=== PATIENT | male | born 1955 | race Caucasian/White ===

== ENCOUNTER 2016-06-09 10:34 | Day surgery (SDC) | payer OTHER ==
--- NOTE | ~2016-06-09 | EGD ---
EGD REPORT [facility] [address] [id number] NAME: ROLANDO CHOWDHURY : 53 STATUS : REG [facility] [place] PAT#: [id number] AGE: 61 ADM/REG DATE : 06/09/16 MR#: [id number] REPORT SERV DATE: 06/09/16 DICTATED BY: HOPE MOLINA DATE: 06/09/16 REPORT STATUS : Draft [facility] DATE: 06/09/16 [facility] Patient Name: Rolando Chowdhury Date of : 1955 Attending MD: HOPE MOLINA MD Procedure Date No Time: 06/09/2016 Procedure: Colonoscopy Indications: Surveillance: Personal history of adenomatous polyps on last colonoscopy 5 years ago Referring MD: CARLOS EDUARDO MORAN MD Medicines: Propofol per Anesthesia Complications: No immediate complications. Procedure: Pre-Anesthesia Assessment: - ASA Grade Assessment: III - A patient with severe systemic disease. After I obtained informed consent, the scope was passed under direct vision. Throughout the procedure, the patient's blood pressure, pulse, and oxygen saturations were monitored continuously. The CF [id number] was introduced through the anus and advanced to the terminal ileum. The colonoscopy was performed without difficulty. The patient tolerated the procedure well. The quality of the bowel preparation was good. Findings: The perianal and digital rectal examinations were normal. The terminal ileum appeared normal. The colon (entire examined portion) appeared normal. A sessile polyp was found in the ascending colon. The polyp was 2 mm in size. The polyp was removed with a cold biopsy forceps. Resection and retrieval were complete. A sessile polyp was found in the sigmoid colon. The polyp was 3 mm in size. The polyp was removed with a cold biopsy forceps. Resection and retrieval were complete. Many small-mouthed diverticula were found in the recto-sigmoid colon and in the sigmoid colon. Non-bleeding internal hemorrhoids were found during retroflexion and were mild, small and Grade I (internal hemorrhoids that do not prolapse). Impression: - The examined portion of the ileum was normal. - The entire examined colon is normal. - One 2 mm polyp in the ascending colon. Resected and retrieved. - One 3 mm polyp in the sigmoid colon. Resected and retrieved. EGD REPORT [address] [address] NAME: ROLANDO CHOWDHURY : [birth year] STATUS : REG [facility] [place] PAT#: [id number] AGE: 61 ADM/REG DATE : 06/09/16 MR#: [id number] REPORT SERV DATE: 06/09/16 DICTATED BY: HOPE MOLINA DATE: 06/09/16 REPORT STATUS : Draft TRANSCRIBED BY: [employer] DATE: 06/09/16 - Diverticulosis in the recto-sigmoid colon and in the sigmoid colon. - Non-bleeding internal hemorrhoids. Recommendation: - Patient has a contact number available for emergencies. The signs and symptoms of potential delayed complications were discussed with the patient. Return to normal activities tomorrow. Written discharge instructions were provided to the patient. - Return to previous diet. - Continue present medications. - Await pathology results. - Repeat colonoscopy in 3 - 5 years for surveillance based on pathology results. - Return to my office as previously scheduled. - Discharge patient to home. Procedure Code(s): --- Professional --- 06465, Colonoscopy, flexible, proximal to splenic flexure; with biopsy, single or multiple Diagnosis Code(s): --- Professional --- K64.0, First degree hemorrhoids K57.30, Diverticulosis of large intestine without perforation or abscess without bleeding D12.5, Benign neoplasm of sigmoid colon D12.2, Benign neoplasm of ascending colon Z86.010, Personal history of colonic polyps CPT copyright 2013 [employer]. All rights reserved. The codes documented in this report are preliminary and upon pension agent review may be revised to meet current compliance requirements. Hope Molina MD HOPE MOLINA MD 06/09/2016 3:12 PM This report has been signed electronically. Number of Addenda: 0 Note Initiated On: 06/09/2016 2:18 PM Scope Withdrawal Time 0 hours 10 minutes 1 second [id number] [id number]
[~2016-06-09 10:34] MED LIST: ALLEGRA180 PO; ASA5GR PO; ASABAYER PO; CRAN CONC500 MG PO; CRESTOR10 PO; DEPO-TESTOS100 MG/ML IM; GINKGO BILOBA PO; HYDROCHLOROT25 MG PO; L20 PO; LOVAZA1 GM PO; METHOC750B PO; MOBIC15 MG PO; PRIN5 PO; PROMEGA PO; SAW PALMETTO PO; SAWPALMETTO PO; SINGULAIR1 PO; SPIR100 PO; TYLENOL ARTH650 MG PO; TYLENOL ARTHRITIS; ULTRAM50 PO; VIT B12 SL; VITAMIN B-121000 MC1 SL; VITC500 PO; VITE1000 PO; ZINC PO; [UNRECOGNIZED DRUG - OTHER]
== END 2016-06-09 23:59 | disposition home or self-care (01) ==
LOC: DMU 10:34
PROVIDERS: Internal Medicine Gastroenterology
PROC: 0DBN8ZZ Excision of Sigmoid Colon, Via Natural or Artificial Opening Endoscopic (ICD-10-PCS; 2016-06-09)
PROC: 0DBK8ZZ Excision of Ascending Colon, Via Natural or Artificial Opening Endoscopic (ICD-10-PCS; principal; 2016-06-09 11:30)
DX: D12.5 Benign neoplasm of sigmoid colon (principal); K57.30 Diverticulosis of large intestine without perforation or abscess without bleeding; K64.0 First degree hemorrhoids; G47.33 Obstructive sleep apnea (adult) (pediatric); E66.01 Morbid (severe) obesity due to excess calories; Z68.34 Body mass index [BMI] 34.0-34.9, adult; Z86.010 Personal history of colon polyps; Z86.718 Personal history of other venous thrombosis and embolism; Z86.711 Personal history of pulmonary embolism; Z88.5 Allergy status to narcotic agent; Z88.8 Allergy status to other drugs, medicaments and biological substances; Z79.1 Long term (current) use of non-steroidal anti-inflammatories (NSAID); Z79.891 Long term (current) use of opiate analgesic; Z79.82 Long term (current) use of aspirin; Z79.899 Other long term (current) drug therapy
CPT/HCPCS: 88305